=== PATIENT | female | born 1930 | race Caucasian/White ===

== ENCOUNTER 2016-10-15 08:39 | Outpatient (CLI) | payer MEDICARE, OTHER | END 2016-10-15 08:40 | LOC: NAVSJIPCSP 08:39 | PROVIDERS: ATTEND Internal Medicine | DX: E78.5 Hyperlipidemia, unspecified (principal); Z79.899 Other long term (current) drug therapy | CPT/HCPCS: 36415; 80061 ==

== ENCOUNTER 2016-10-26 17:14 | Emergency (ER) | payer MEDICARE, OTHER ==
[2016-10-26] MEDS ORDERED: Sodium Chloride 0.9% 500 ML ONE (18:26)
[2016-10-26 18:28] LABS: Prothrombin Time 12.4 SEC (12.0-14.7)
[2016-10-26 18:35] LABS: #Basophils 0.1 thou/uL (0.0-0.2); #Eosinphils 0.1 thou/uL (0.0-0.7); #Lymphocytes 1.1 thou/uL (1.20-3.40); #Monocytes 0.6 thou/uL (0.11-0.59); #Neutrophils 3.9 thou/uL (1.40-6.50); %Basophils 1.5 % (0.0-1.0); %Lymphocytes 18.5 % (21.0-51.0); %Monocytes 10.5 % (0.0-10.0); Hematocrit 40.8 % (36.0-47.0); Mean Platelet Volume 6.3 fL (7.4-10.4); Red Blood Cell (RBC) Count 4.27 mill/uL (4.20-5.40); White Blood Cell (WBC) Count 5.8 thou/uL (4.8-10.8)
[2016-10-26 18:36] LABS: ALT (SGPT) 29 U/L (0-55); AST (SGOT) 29 U/L (5-34); Alkaline Phosphatase 72 U/L (40-150); Anion Gap 16 mmol/L (10-20); BUN (Urea Nitrogen) 14 mg/dL (9.8-20.1); Bilirubin, Total 0.5 mg/dL (0.2-1.2); Calc. Creatinine Clearance 0 mL/min (70-130); Calcium 9.6 mg/dL (7.8-10.44); Carbon Dioxide 23 mmol/L (23-31); Chloride 96 mmol/L (98-107); Estimated GFR-MDRD 65; Lipase 48 U/L (8-78); Protein, Total 7.4 g/dL (5.8-8.1)
== END 2016-10-26 19:44 | disposition home or self-care (01) ==
LOC: NAV ERS 17:14
DX: K64.4 Residual hemorrhoidal skin tags (principal); E78.5 Hyperlipidemia, unspecified; K21.9 Gastro-esophageal reflux disease without esophagitis; I10 Essential (primary) hypertension; Z79.899 Other long term (current) drug therapy; Z79.82 Long term (current) use of aspirin
CPT/HCPCS: 80053; 82272; 83690; 85025; 85610; 93005; 96360; J7050

== ENCOUNTER 2016-11-29 14:26 | Outpatient (CLI) | payer MEDICARE, OTHER | END 2016-11-29 14:27 | disposition home or self-care (01) | LOC: NAVSJIPCSP 14:26 | PROVIDERS: ATTEND Internal Medicine | DX: R35.0 Frequency of micturition (principal) | CPT/HCPCS: 36415; 87086 ==

== ENCOUNTER 2016-12-28 16:40 | Inpatient (IN) | payer MEDICARE, OTHER ==
[2016-12-28] MEDS ORDERED: Sodium Chloride 0.9% 1,000 ML ONE (17:20)
[2016-12-28 17:41] LABS: #Basophils 0.1 thou/uL (0.0-0.2); #Eosinphils 0.1 thou/uL (0.0-0.7); #Lymphocytes 0.9 thou/uL (1.20-3.40); #Monocytes 0.8 thou/uL (0.11-0.59); #Neutrophils 4.7 thou/uL (1.40-6.50); %Basophils 1.1 % (0.0-1.0); %Eosinophils 1.2 % (0.0-10.0); %Lymphocytes 13.3 % (21.0-51.0); %Monocytes 11.8 % (0.0-10.0); %Neutrophils 72.6 % (42.0-75.0); Hemoglobin 11.9 g/dL (12.0-16.0); Mean Corpuscular HGB CONC 34.9 g/dL (32.0-36.0); Mean Corpuscular Volume 91.7 fl (81.0-99.0); Mean Platelet Volume 6.3 fL (7.4-10.4); Platelet Count 217 thou/uL (130-400); RBC Distribution Width 10.8 % (11.5-14.5); Red Blood Cell (RBC) Count 3.73 mill/uL (4.20-5.40); White Blood Cell (WBC) Count 6.5 thou/uL (4.8-10.8)
[2016-12-28 17:57] LABS: ALT (SGPT) 22 U/L (0-55); AST (SGOT) 24 U/L (5-34); Alkaline Phosphatase 62 U/L (40-150); Anion Gap 16 mmol/L (10-20); BUN (Urea Nitrogen) 14 mg/dL (9.8-20.1); Bilirubin, Total 0.5 mg/dL (0.2-1.2); CK (CPK) 104 U/L (29-168); Calc. Creatinine Clearance 0 mL/min (70-130); Carbon Dioxide 24 mmol/L (23-31); Chloride 87 mmol/L (98-107); Estimated GFR-MDRD 77; Globulin 3.2 g/dL (2.4-3.5); Glucose 102 mg/dL (83-110); Potassium 3.8 mmol/L (3.5-5.1); Protein, Total 7.2 g/dL (5.8-8.1); Sodium 123 mmol/L (136-145)
[2016-12-28 18:06] LABS: CKMB 3.2 ng/mL (0-6.6); Troponin I Less than 0.010 ng/mL (< 0.028)
[2016-12-28 18:19] LABS: Bilirubin Negative (Negative); Blood, Urine Negative (Negative); Glucose, Urine (Dipstick) Negative (Negative); Leukocyte Trace (Negative); Nitrite Negative (Negative); Protein, Urine (Dipstick) Negative (Neg-Trace)
[2016-12-28 18:20] LABS: Clarity Hazy (Clear)
[2016-12-28 18:22] LABS: Bacteria/HPF 1+ HPF (None Seen); RBC/HPF None Seen HPF (0-3)
[2016-12-28] MEDS ORDERED: Amoxicillin/Potassium Clav 875 MG TAB ONE (18:32)
[2016-12-28] MEDS ORDERED: Acetaminophen 325 MG TAB PO PRN (20:18)
[2016-12-28] MEDS ORDERED: Sodium Chloride 0.9% 1,000 ML IV SCH (20:30)
[2016-12-28] MEDS ORDERED: Ondansetron ODT 4 MG TAB PO PRN (21:37)
[2016-12-28] MEDS: Sodium Chloride 0.9% 1,000 ML IV SCH (22:33)
--- NOTE | 2016-12-28 23:31 | CT ---
CT HEAD WITHOUT IV CONTRAST 12/28/2016 HISTORY: Confusion and falling spells. Hyponatremia. Weakness. FINDINGS: There is increased attenuation of the periventricular white matter which is nonspecific but likely r eflective of mild chronic small vessel ischemic changes. There is no evidence of acute cortical inf arction, hemorrhage, mass effect, or midline shift. There is diffuse cerebral volume loss. The klarissa tricular system is normal in size, shape, and position for the degree of sulcal atrophy. Vascular c alcification seen in the carotid siphons and in the distal vertebral arteries. Minimal mucosal thic kening is seen in the right ethmoidal air cells. The mastoid air cells are clear. Calvarial struct ures are intact, no calvarial fracture is seen. IMPRESSION: 1. No acute intracranial abnormality is demonstrated. 2. Mild chronic small vessel ischemic change and cerebral volume loss. POS: [facility]
--- NOTE | 2016-12-29 01:58 | HP ---
DATE OF ADMISSION: 12/28/2016 CHIEF COMPLAINT: Confusion, dizziness, falling spells, new finding of hyponatremia. HISTORY OF PRESENT ILLNESS: The patient is a very pleasant 86-year-old white female living by herse lf at home, maintaining ADLs, the only diagnosis of hypertension, mild indigestion, who over the las t several months has becoming slowly weaker and more confused and slightly demented. The family has been monitoring her medication. She had been taking clonazepam as needed rarely in the past as wel l as Fiorinal for headaches, but apparently have increased these over the last several weeks that jefry hamlin has had more headaches and she has fallen on Saturday. The family has stopped the clonazepam, but today she fell again and they brought her into the emergency room. She had been taking valsartan an d hydrochlorothiazide for years for her blood pressure and has never had a previous history of hypon atremia, but today in the emergency room was found to be significantly hyponatremic with sodium of 1 23. She states that she has been eating fairly well, although daughter states she has been decreasi ng her oral intake and has been drinking a great deal of Gatorade. She has also been found to have a possible urinary tract infection 2-3 weeks ago when her symptoms really worsened and her falling s pells worsened and she therefore was treated with Cipro even though there was contaminated urine and did appear to improve until this week. She now is lying in the bed in no distress, but has very loving rd of hearing and is giving history only intermittently and daughter is giving most of the history. She has had no history of trauma to her head. She has never had a CT scan. She has not had any lo molly focal weakness in her arms or legs. PAST MEDICAL HISTORY: Remarkable for hypertension as mentioned above, gastroesophageal reflux, migr simran headaches as mentioned above. PAST SURGICAL HISTORY: Positive for cholecystectomy. She also has a history of dyslipidemia, been on simvastatin in the past. ALLERGIES: She has a history of allergies to CODEINE and to SULFA. SOCIAL HISTORY: She is a nonsmoker and nondrinker as mentioned above. She lives alone. She is a w idow, but family is very close and supportive with daughter and grandchildren. REVIEW OF SYSTEMS: HEENT: She does have recurrent headaches, appears to have worsened recently. She has also had recu rrent dizziness and has had marked decreased hearing. No tinnitus. She has had no change in her vi hugh. PULMONARY: She denied cough, sputum production, pneumonia, asthma, tuberculosis. CARDIOVASCULAR: She denies chest pain, orthopnea, paroxysmal nocturnal dyspnea or edema. GASTROINTESTINAL: She denies nausea, vomiting, diarrhea, constipation, abdominal pain. She does loving ve poor appetite. GENITOURINARY: She did have some dysuria previously with urinary tract infection, but does have rolf e mild lower abdominal pain at this time. No dysuria or hematuria. MUSCULOSKELETAL: She denies stiffness, swelling in joints or extremities. NEUROLOGIC: She denies localized numbness or weakness in joints or extremities, but does have recur rent dizziness and falling spells and subsequent headache. OBJECTIVE: VITAL SIGNS: Shows blood pressure 155/72, pulse 75, respirations 20, temperature 98, and O2 sats 95 %. HEENT: Pupils are equal, round, and react to light and accommodation. Sclerae are anicteric. Conj unctivae pale. Oral mucous membranes well hydrated. NECK: Supple. There are no nodes or masses. JVP is not elevated. Carotids 2+ and equal without b ruits. LUNGS: Clear. CARDIAC: Examination shows regular rhythm. No gallops or murmurs. ABDOMEN: Soft, nontender with no masses or organomegaly. SKIN/EXTREMITIES: Show no edema, clubbing, cyanosis. NEUROLOGICAL: Shows cranial nerves intact. Deep tendon reflexes 2+ equal, absent Babinskis. No pr onator drift, no drift of the legs. Normal [id number] and [id number]. No past pointing. LABORATORY DATA: Show sodium 123, potassium 3.8, chloride 87, bicarbonate 24, BUN 14, creatinine 0. 72, glucose 102, calcium 9.0, total bilirubin 0.5, AST 24, ALT 22, CK 104, MB 3.2, troponin 0.010. Albumin 4.0, globulin 3.2. White count 6,500, hematocrit 34, hemoglobin 11.9. Urinalysis did show 7-10 epithelial cells, 4-6 white cells, 1+ bacteria. ASSESSMENT AND PLAN: The patient is an 86-year-old white female with a history of hypertension, rec ent urinary tract infection, 2-3 week history of increased confusion, superimposed on a several susie h history of dizziness and ataxia. She has been found to have significant hyponatremia and had been taking valsartan and hydrochlorothiazide for her blood pressure for many years, but over the last s everal weeks, she has been drinking more Gatorade and not eating as much and could possibly be havin g mild dehydration syndrome, inappropriate ADH causing her hyponatremia. We therefore discontinued hydrochlorothiazide. Continued with normal saline at 125 an hour ordered in the emergency room by gutierrez LERNER doctor. She was started on 1500 mL oral fluid restriction and repeat basic metabolic profile in the a.m. She will also get a CT scan to evaluate for intracranial injury, possibly the cause of SIADH or ataxia, I doubt this will be abnormal. We will also obviously withhold any benzodiazepines , sleeping pills, only given Tylenol for pain. See if this improves her altered mental status and f inally we will treat her urinary tract infection with Cipro. Pending results of urine culture.
[2016-12-29] MEDS: Sodium Chloride 0.9% 1,000 ML IV SCH ×4 (05:01→23:19)
[2016-12-29 05:40] LABS: #Basophils 0.1 thou/uL (0.0-0.2); #Eosinphils 0.1 thou/uL (0.0-0.7); #Lymphocytes 0.8 thou/uL (1.20-3.40); #Monocytes 0.7 thou/uL (0.11-0.59); #Neutrophils 3.8 thou/uL (1.40-6.50); %Basophils 1.2 % (0.0-1.0); %Eosinophils 1.4 % (0.0-10.0); %Lymphocytes 14.5 % (21.0-51.0); %Monocytes 13.2 % (0.0-10.0); %Neutrophils 69.8 % (42.0-75.0); Hemoglobin 11.7 g/dL (12.0-16.0); Mean Corpuscular HGB CONC 34.8 g/dL (32.0-36.0); Mean Platelet Volume 6.3 fL (7.4-10.4); Platelet Count 212 thou/uL (130-400); RBC Distribution Width 10.8 % (11.5-14.5); Red Blood Cell (RBC) Count 3.66 mill/uL (4.20-5.40); White Blood Cell (WBC) Count 5.5 thou/uL (4.8-10.8)
[2016-12-29] MEDS: Ciprofloxacin 500 MG TAB PO SCH ×2 (05:52→20:21)
[2016-12-29 05:53] LABS: ALT (SGPT) 19 U/L (0-55); AST (SGOT) 21 U/L (5-34); Albumin 3.5 g/dL (3.4-4.8); Alkaline Phosphatase 54 U/L (40-150); Anion Gap 10 mmol/L (10-20); BUN (Urea Nitrogen) 12 mg/dL (9.8-20.1); Bilirubin, Total 0.6 mg/dL (0.2-1.2); Calc. Creatinine Clearance 53 mL/min (70-130); Calcium 8.6 mg/dL (7.8-10.44); Carbon Dioxide 23 mmol/L (23-31); Chloride 100 mmol/L (98-107); Estimated GFR-MDRD 80; Globulin 2.3 g/dL (2.4-3.5); Glucose 95 mg/dL (83-110); Potassium 3.7 mmol/L (3.5-5.1); Protein, Total 5.8 g/dL (5.8-8.1); Sodium 129 mmol/L (136-145)
[2016-12-29] MEDS: Acetaminophen 500 MG TAB PO PRN (05:53)
[2016-12-29] MEDS ORDERED: Cipro 250 MG TAB PO SCH (06:00)
[2016-12-29] MEDS: Docusate 100 MG CAP PO SCH ×2 (09:51→20:21)
[2016-12-29] MEDS: Valsartan 80 MG TAB PO SCH (09:51)
[2016-12-29] MEDS: Acetaminophen 325 MG TAB PO PRN (10:29)
--- NOTE | 2016-12-29 10:46 | PRG ---
DATE OF PROGRESS NOTE: 12/29/2016 SUBJECTIVE: The patient feels much better, sitting up in bed, eating breakfast, eating entire meal, but still somewhat slightly confused, but much more awake and alert, and lucid. OBJECTIVE: VITAL SIGNS: Her blood pressure is 128/58, O2 sat is 93%, respirations 16, pulse 69, afebrile. LUNGS: Clear. CARDIAC: Regular rhythm. ABDOMEN: Soft and nontender. SKIN AND EXTREMITIES: Show no edema, clubbing, or cyanosis. NEUROLOGICAL: Shows no focal findings. CT scan only showed mild brain atrophy. LABORATORY DATA: Shows white count stable at 5500, hematocrit 33, hemoglobin 11. Sodium is up to 1 29, potassium 3.7, chloride 100, bicarbonate 23, BUN 12, creatinine 0.6. Albumin 3.5, globulin 2.3. Urinalysis did show contaminated urine. ASSESSMENT: 1. Hyponatremia, improving with discontinuation of hydrochlorothiazide, fluid restriction and IV no rmal saline. 2. Altered mental status and confusion, improving with improving her hyponatremia. Continue discon tinuation of long-acting benzodiazepine with no evidence of acute cerebrovascular accident. 3. Hypertension, still well controlled only on valsartan and no hydrochlorothiazide. We will monit or. 4. Possible urinary tract infection versus contamination. PLAN: Decrease IV to saline at 75 an hour, repeat basic metabolic profile in the a.m. Continue flu id restriction. Continue to monitor mental status. PT, OT consult to evaluate for safety. Continu e Cipro 250 twice daily until urine culture returned.
[2016-12-29] MEDS: Simvastatin 40 MG TAB PO SCH (20:21)
[2016-12-30 06:01] LABS: Anion Gap 12 mmol/L (10-20); BUN (Urea Nitrogen) 12 mg/dL (9.8-20.1); Calc. Creatinine Clearance 57 mL/min (70-130); Calcium 8.9 mg/dL (7.8-10.44); Carbon Dioxide 25 mmol/L (23-31); Chloride 99 mmol/L (98-107); Estimated GFR-MDRD 88; Glucose 97 mg/dL (83-110); Potassium 4.6 mmol/L (3.5-5.1); Sodium 131 mmol/L (136-145)
[2016-12-30] MEDS: Ciprofloxacin 500 MG TAB PO SCH ×2 (06:04→20:57)
[2016-12-30] MEDS: Docusate 100 MG CAP PO SCH ×2 (08:52→20:57)
[2016-12-30] MEDS: Valsartan 80 MG TAB PO SCH (08:52)
[2016-12-30] MEDS: Acetaminophen 500 MG TAB PO PRN ×2 (08:53→20:57)
[2016-12-30] MEDS: Acetaminophen 325 MG TAB PO PRN (11:57)
--- NOTE | 2016-12-30 14:50 | PRG ---
DATE OF SERVICE: 12/30/2016 SUBJECTIVE: The patient feels better, still slightly confused, has removed her IV, but is asking ap propriate questions and realizes that she needs to remain in the hospital. She has been eating well and has been undergoing fluid restriction and has been monitoring her blood pressure off hydrochlor othiazide. She also has been taking antibiotics and urine culture is pending. Patient has been out of the bed, somewhat only with assistance has been following directions, has not started physical t herapy yet. OBJECTIVE: Shows her blood pressure is stable at 131/60, temperature 98.3, pulse 79, respirations 2 0, O2 sats 95%. Lungs are clear. Cardiac examination shows regular rhythm. Abdomen is soft and no ntender. LABORATORY DATA: Shows improvement in the sodium to 131, potassium 4.6, chloride 99, bicarbonate 25 , BUN stable at 12, creatinine 0.64. Her urine culture is still pending. ASSESSMENT: 1. Improving hyponatremia, most likely due to thiazide diuretic, almost back to normal, we will rep eat again tomorrow and continue fluid restriction. 2. Hypertension, with good control on valsartan without hydrochlorothiazide. We will monitor. 3. Possible urinary tract infection being treated with Cipro with culture pending. 4. Possible benzodiazepine, side effect improving with discontinuation of the long-acting benzodiaz epine, clonazepam for the last week. PLAN: Can start PT, OT tomorrow. Repeat basic metabolic profile in the a.m. Continue to monitor b lood pressure, check results of urine culture and possibly discontinue Cipro. Dr. Teague to be back to assume care tomorrow.
[2016-12-30] MEDS: Simvastatin 40 MG TAB PO SCH (20:57)
[2016-12-31 05:37] LABS: Anion Gap 13 mmol/L (10-20); BUN (Urea Nitrogen) 8 mg/dL (9.8-20.1); Calc. Creatinine Clearance 58 mL/min (70-130); Calcium 8.8 mg/dL (7.8-10.44); Carbon Dioxide 23 mmol/L (23-31); Chloride 95 mmol/L (98-107); Estimated GFR-MDRD 89; Glucose 101 mg/dL (83-110); Potassium 4.3 mmol/L (3.5-5.1); Sodium 127 mmol/L (136-145)
[2016-12-31] MEDS: Ciprofloxacin 500 MG TAB PO SCH (05:52)
[2016-12-31] MEDS: Docusate 100 MG CAP PO SCH ×2 (09:05→21:51)
[2016-12-31] MEDS: Valsartan 80 MG TAB PO SCH (09:05)
[2016-12-31] MEDS: Acetaminophen 325 MG TAB PO PRN (13:37)
--- NOTE | 2016-12-31 13:44 | PRG ---
DATE OF SERVICE: 12/31/2016 SUBJECTIVE: Ms. Taylor is doing okay. She still is having episodes of confusion. Her daughter is in the room. She apparently did participate with therapy. She apparently also ate half of her praveen ch. She denies any complaints. The plan is to try her on some Aricept to see if most of this is du e to age related to dementia. I advised them that the Aricept takes a while for it to get in the sy stem and work, but the main reason we are trying is to make sure she tolerates it. I also informed the daughter that she really needs to not be staying home alone from now on. The plan is to see if she qualifies for therapy and then get her into a skilled bed and see how she does. I am going to s top her Cipro since her urine culture was negative. Will continue the fluid restriction. OBJECTIVE: VITAL SIGNS: She is afebrile, heart rate is 89, respirations are 20, oxygen saturation 96%, blood p ressure 143/89. CARDIOVASCULAR: S1, S2 plus. RESPIRATORY: Normal vesicular breath sounds. ABDOMEN: Soft, nontender, bowel sounds heard in all quadrants. EXTREMITIES: Without cyanosis or clubbing. IMPRESSION: 1. 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 2. Hyponatremia, improving. 3. Hypertension. 4. Dyslipidemia. 5. History of migraine headaches. 6. Allergic rhinitis. 7. Gastroesophageal reflux disease. 8. Deconditioning. PLAN: 1. Continue physical therapy and occupational therapy. 2. Encourage p.o. intake. 3. Continue fluid restriction. 4. Add Aricept 5 mg daily at night. 5. Stop ciprofloxacin. 6. See if she qualifies for continued therapy, then we will transfer to a swing bed. 7. Recheck laboratory values in the morning. 8. Discussed with daughter in detail and all questions answered.
[2016-12-31 15:24] VITALS: BMI 21.9
[2016-12-31] MEDS ORDERED: Donepezil HCl 5 MG TAB PO SCH (21:00)
[2016-12-31] MEDS ORDERED: Non-Formulary Item 1 EACH (Docusate Sodium [Docusate Sodium] 100 MG) PO SCH (21:00)
[2016-12-31] MEDS: Simvastatin 40 MG TAB PO SCH (21:51)
[2016-12-31] MEDS: Calcium Carbonate + Vit D 1 TAB PO SCH (21:51)
[2017-01-01 06:07] LABS: #Basophils 0.1 thou/uL (0.0-0.2); #Eosinphils 0.2 thou/uL (0.0-0.7); #Lymphocytes 1.1 thou/uL (1.20-3.40); #Monocytes 0.7 thou/uL (0.11-0.59); #Neutrophils 4.7 thou/uL (1.40-6.50); %Basophils 1.1 % (0.0-1.0); %Eosinophils 2.6 % (0.0-10.0); %Monocytes 10.6 % (0.0-10.0); %Neutrophils 69.7 % (42.0-75.0); Hemoglobin 12.1 g/dL (12.0-16.0); Mean Corpuscular HGB CONC 34.3 g/dL (32.0-36.0); Mean Corpuscular Hemoglobin 31.7 pg (27.0-31.0); Mean Corpuscular Volume 92.6 fl (81.0-99.0); Mean Platelet Volume 5.9 fL (7.4-10.4); Platelet Count 233 thou/uL (130-400); RBC Distribution Width 11.2 % (11.5-14.5); Red Blood Cell (RBC) Count 3.81 mill/uL (4.20-5.40); White Blood Cell (WBC) Count 6.8 thou/uL (4.8-10.8)
[2017-01-01 06:18] LABS: Anion Gap 12 mmol/L (10-20); BUN (Urea Nitrogen) 11 mg/dL (9.8-20.1); Calc. Creatinine Clearance 54 mL/min (70-130); Calcium 9.2 mg/dL (7.8-10.44); Carbon Dioxide 23 mmol/L (23-31); Chloride 100 mmol/L (98-107); Estimated GFR-MDRD 83; Glucose 97 mg/dL (83-110); Sodium 131 mmol/L (136-145)
[2017-01-01 07:33] VITALS: BP 160/78; TEMP 98
[2017-01-01] MEDS: Calcium Carbonate + Vit D 1 TAB PO SCH (08:19)
[2017-01-01] MEDS: Valsartan 80 MG TAB PO SCH (08:20)
[2017-01-01] MEDS: Docusate 100 MG CAP PO SCH (08:20)
[2017-01-01] MEDS ORDERED: Loratadine 10 MG TAB PO SCH (09:00)
[2017-01-01] MEDS ORDERED: Non-Formulary Item 1 EACH (Esomeprazole Magnesium [Nexium] 40 MG) PO SCH (09:00)
[2017-01-01] MEDS ORDERED: Multivitamin W/ Minerals 1 TAB PO SCH (09:00)
[2017-01-01] MEDS: Acetaminophen 325 MG TAB PO PRN (10:59)
[2017-01-01] MEDS ORDERED: Potassium Chloride 20 MEQ TAB PO SCH ×2 (13:00→14:45)
--- NOTE | 2017-01-01 13:34 | PRG ---
DATE OF SERVICE: 01/01/2017 SUBJECTIVE: Ms. Taylor is doing well. She apparently walked about 250 feet today with assistance. She is feeling tired. She denies any lightheadedness or dizziness. She did have some tremors thi s morning apparently according to her daughter, eating better. OBJECTIVE: VITAL SIGNS: She is afebrile, heart rate is 85, respirations 20, oxygen saturation 94%, blood press ure 160/78. CARDIOVASCULAR: S1, S2 plus. RESPIRATORY: Normal vesicular breath sounds. ABDOMEN: Soft, nontender, bowel sounds heard in all quadrants. EXTREMITIES: Without cyanosis or clubbing. LABORATORY VALUES: White count 6.8, H\T\H is 12.1 and 35.3, sodium 131, potassium 4.0, BUN and crea tinine are 11 and 0.67. IMPRESSION: 1. Resolving hyponatremia. 2. Possible early dementia. 3. Hypertension. 4. Gastroesophageal reflux disease. 5. Allergic rhinitis. 6. Kyphosis. 7. Deconditioning. PLAN: 1. Continue physical therapy. 2. Monitor laboratory values. 3. Discussed with daughter that the patient does need someone there 01/04. 4. Continue Aricept. 5. Routine laboratory values. 6. Deep venous thrombosis and stress ulcer prophylaxis.
== END 2017-01-01 15:18 | disposition swing bed (61) | DRG 641 ==
LOC: NAV ERS 16:40 → NAV ACUTE 19:05 → OBSVTOIN 21:37
PROVIDERS: ADMIT Internal Medicine; ATTEND Internal Medicine
DX: E87.1 Hypo-osmolality and hyponatremia (principal); E86.0 Dehydration; F03.90 Unspecified dementia, unspecified severity, without behavioral disturbance, psychotic disturbance, mood disturbance, and anxiety; T50.2X5A Adverse effect of carbonic-anhydrase inhibitors, benzothiadiazides and other diuretics, initial encounter; R27.0 Ataxia, unspecified; I10 Essential (primary) hypertension; R29.6 Repeated falls; G43.909 Migraine, unspecified, not intractable, without status migrainosus; K21.9 Gastro-esophageal reflux disease without esophagitis; Z88.1 Allergy status to other antibiotic agents; M40.209 Unspecified kyphosis, site unspecified; J30.9 Allergic rhinitis, unspecified
CPT/HCPCS: 70450; 80048; 80053; 81003; 81015; 82550; 82553; 84484; 85025; 87086; 93005; 96360; G8978-GP-CJ; G8979-GP-CI; G8987-GO-CK; G8988-GO-CI; J7050

== ENCOUNTER 2017-01-01 15:21 | Inpatient (IN) | payer MEDICARE, OTHER ==
[2017-01-01] MEDS: CALCIUM CITRATE PO SCH (21:21)
[2017-01-01] MEDS: VITAMIN D3 PO SCH (21:21)
[2017-01-01] MEDS: Simvastatin 40 MG TAB PO SCH (21:21)
[2017-01-01] MEDS: Docusate 100 MG CAP PO SCH (21:21)
[2017-01-02] MEDS: Multivitamin W/ Minerals 1 TAB PO SCH (08:52)
[2017-01-02] MEDS: Valsartan 80 MG TAB PO SCH (08:52)
[2017-01-02] MEDS: Loratadine 10 MG TAB PO SCH (08:52)
[2017-01-02] MEDS: VITAMIN D3 PO SCH ×2 (08:53→21:01)
[2017-01-02] MEDS: CALCIUM CITRATE PO SCH ×2 (08:53→21:01)
--- NOTE | 2017-01-02 17:50 | HP ---
DATE OF ADMISSION: 01/01/2017 CHIEF COMPLAINT: Waxing and waning confusion and deconditioning. BRIEF HISTORY: This is a pleasant 86-year-old female who was admitted last [place] with qu estion of urinary tract infection, frequent falls and confusion. Her workup was negative for a blad armando infection. Her electrolytes showed some hyponatremia, but it has improved. She is continuing t o have waxing and waning, confusion. Her CT brain was negative and there is no evidence for any met abolic encephalopathy. I had a long discussion with her daughter and explained to this most likely is just senile degeneration of the brain, basically dementia for which she has not been able to comp ensate anymore. I have started her on Aricept. She is working with therapy. She has been transfer red here to [facility] for continued therapy and help improve with her mobilization while family is jake ing arrangements because I advised them that she should not be staying home alone. PAST MEDICAL HISTORY: 1. Hypertension. 2. Gastroesophageal reflux disease. 3. Dyslipidemia. 4. Migraine type headaches. 5. Kyphosis. PAST SURGICAL HISTORY: Cholecystectomy. ALLERGIES: CODEINE and SULFA. FAMILY HISTORY: Noncontributory to current admission. PSYCHOSOCIAL HISTORY: No tobacco or alcohol abuse. She lives alone. REVIEW OF SYSTEMS: CARDIOVASCULAR: Denies any chest pain, shortness of breath, palpitations, PND, orthopnea, pedal obed ma. RESPIRATORY: Denies any chronic cough, expectoration or pleuritic type chest pain. GASTROINTESTINAL: Denies any nausea, vomiting, diarrhea, constipation, hematemesis, melena, hematoc hezia. GENITOURINARY: Denies any frequency, urgency, dysuria or hematuria. CENTRAL NERVOUS SYSTEM: Generalized weakness and episodes of confusion. ADMISSION MEDICATIONS: 1. Valsartan 160 mg p.o. daily. 2. Simvastatin 80 mg daily. 3. Loratadine 10 mg daily. 4. Multivitamin 1 tablet daily. 5. Ecotrin 81 mg daily. 6. Calcium with vitamin D, 2 tablets b.i.d. PHYSICAL EXAMINATION: GENERAL: An 86-year-old female resting comfortably in no acute distress. She is aware of who I am, but she thinks that she was in the hospital, was discharged home and then she had to come back because of abdominal pain. Apparently this morning, she was able to get up and go to the bath room, but this afternoon she told her nurse that she cannot until she reminded and then she did it. VITAL SIGNS: She is afebrile. Heart rate is 72, respirations 18, oxygen saturation 95%, blood pres sure is 130/61. HEENT: Normocephalic, atraumatic. CARDIOVASCULAR: S1 and S2 plus. RESPIRATORY: Normal vesicular breath sounds. ABDOMEN: Soft, nontender, bowel sounds heard in all quadrants. EXTREMITIES: Without cyanosis or clubbing. CENTRAL NERVOUS SYSTEM: Grossly nonfocal except for the cognitive dysfunction. IMPRESSION: 1. Worsening senile dementia. 2. Improving deconditioning. 3. Hypertension. 4. Gastroesophageal reflux disease. 5. Dyslipidemia. 6. Degenerative joint disease. 7. Migraine type headache. PLAN: 1. Continue current medications. 2. Physical therapy and occupational therapy evaluate and treat. 3. DVT and stress ulcer prophylaxis. 4. Decubitus precautions. 5. Nutritional support. 6. Routine laboratory values. 7. No family at the bedside.
[2017-01-02] MEDS: Docusate 100 MG CAP PO SCH (21:00)
[2017-01-02] MEDS: Simvastatin 40 MG TAB PO SCH (21:00)
[2017-01-02] MEDS: Acetaminophen 500 MG TAB PO PRN (23:20)
[2017-01-03 05:32] LABS: Anion Gap 13 mmol/L (10-20); BUN (Urea Nitrogen) 14 mg/dL (9.8-20.1); Calc. Creatinine Clearance 55 mL/min (70-130); Calcium 8.9 mg/dL (7.8-10.44); Carbon Dioxide 24 mmol/L (23-31); Chloride 99 mmol/L (98-107); Estimated GFR-MDRD 86; Glucose 96 mg/dL (83-110); Potassium 4.5 mmol/L (3.5-5.1); Sodium 131 mmol/L (136-145)
[2017-01-03] MEDS: Valsartan 80 MG TAB PO SCH (08:45)
[2017-01-03] MEDS: Loratadine 10 MG TAB PO SCH (08:45)
[2017-01-03] MEDS: VITAMIN D3 PO SCH ×2 (08:45→21:25)
[2017-01-03] MEDS: CALCIUM CITRATE PO SCH ×2 (08:45→21:25)
[2017-01-03] MEDS: Multivitamin W/ Minerals 1 TAB PO SCH (08:45)
--- NOTE | 2017-01-03 13:52 | PRG ---
DATE OF SERVICE: 01/03/2017 SUBJECTIVE: Ms. Taylor is doing well. Denies any complaints, resting comfortably, tolerating her medications. OBJECTIVE: VITAL SIGNS: She is afebrile. Vital signs are stable. GENERAL: Her daughter is in the room. She did well with therapy. She does have some shoulder pain , probably from using her walker VITAL SIGNS: Blood pressure is 137/68, respiratory rate is 20, pulse is 78. CARDIOVASCULAR: S1, S2 plus. RESPIRATORY: Normal vesicular breath sounds. ABDOMEN: Soft, nontender, bowel sounds heard in all quadrants. EXTREMITIES: Without cyanosis or clubbing. Trace edema. LABORATORY VALUES: Sodium 131, potassium 4.5, BUN and creatinine is 14 and 0.65. TSH is 2.5476. IMPRESSION: 1. Improving deconditioning. 2. Stable hypertension. 3. Gastroesophageal reflux disease. 4. Dyslipidemia. 5. Migraine type headaches. 6. Kyphosis. 7. Anxiety. 8. Hyponatremia. 9. Encephalopathy/early dementia. PLAN: 1. Continue current medications. 2. Physical therapy. 3. Nutritional support. 4. DVT and stress ulcer prophylaxis. 5. Decubitus precautions. 6. Routine laboratory values. 7. Needs assistance at home 01/04. 8. Recheck CBC, CMP on Saturday.
[2017-01-03] MEDS: Mag-Al Plus 1200 MG/1200 MG/120 MG/30 ML UDCUP PO PRN (17:50)
[2017-01-03] MEDS: Simvastatin 40 MG TAB PO SCH (21:24)
[2017-01-03] MEDS: Docusate 100 MG CAP PO SCH (21:25)
[2017-01-03] MEDS: Acetaminophen 500 MG TAB PO PRN (21:25)
[2017-01-04] MEDS: Valsartan 80 MG TAB PO SCH (09:12)
[2017-01-04] MEDS: Acetaminophen 500 MG TAB PO PRN ×3 (09:12→20:52)
[2017-01-04] MEDS: Loratadine 10 MG TAB PO SCH (09:12)
[2017-01-04] MEDS: Multivitamin W/ Minerals 1 TAB PO SCH (09:12)
[2017-01-04] MEDS: VITAMIN D3 PO SCH ×2 (09:14→20:52)
[2017-01-04] MEDS: CALCIUM CITRATE PO SCH ×2 (09:14→20:52)
[2017-01-04] MEDS: Mag-Al Plus 1200 MG/1200 MG/120 MG/30 ML UDCUP PO PRN (17:47)
[2017-01-04] MEDS: Simvastatin 40 MG TAB PO SCH (20:52)
[2017-01-04] MEDS: Docusate 100 MG CAP PO SCH (20:52)
[2017-01-05] MEDS: Valsartan 80 MG TAB PO SCH (08:49)
[2017-01-05] MEDS: Loratadine 10 MG TAB PO SCH (08:49)
[2017-01-05] MEDS: Multivitamin W/ Minerals 1 TAB PO SCH (08:49)
[2017-01-05] MEDS: VITAMIN D3 PO SCH (09:01)
[2017-01-05] MEDS: CALCIUM CITRATE PO SCH (09:01)
[2017-01-05] MEDS ORDERED: Hydrocortisone/Pramoxine (Proctofoam HC) 10 GM BOX PR PRN (16:24)
--- NOTE | 2017-01-05 16:38 | PRG ---
DATE OF PROCEDURE: 01/05/2017. SUBJECTIVE: Ms. Taylor is doing well. Denies any complaints, resting comfortably. She apparently walked with her daughter without any issues. Her confusion is better according to staff, toleratin g her diet. OBJECTIVE: VITAL SIGNS: She is afebrile, heart rate is 81, respiration rate 18, oxygen saturation 93%, blood p ressure is 161/82. CARDIOVASCULAR: S1, S2 plus. RESPIRATORY: Normal vesicular breath sounds. ABDOMEN: Soft, nontender, bowel sounds heard in all quadrants. EXTREMITIES: Without cyanosis or clubbing. IMPRESSION: 1. Resolving hyponatremia. 2. Improving deconditioning. 3. Gastroesophageal reflux disease. 4. Hypertension. 5. Dyslipidemia. 6. Mild dementia. PLAN: 1. Continue Aricept. 2. Resume Nexium and calcium. 3. Continue physical therapy. 4. Nutritional support. 5. DVT and stress ulcer prophylaxes. 6. Decubitus precautions. 7. Recheck laboratory values in the morning. 8. No family at the bedside. They are aware that she needs to have someone with her at home at all times after discharge. Discussed with nursing.
[2017-01-05] MEDS: Calcium Carbonate + Vit D 1 TAB PO SCH (20:30)
[2017-01-05] MEDS: Donepezil HCl 10 MG TAB PO SCH (20:30)
[2017-01-05] MEDS: Docusate 100 MG CAP PO SCH (20:30)
[2017-01-05] MEDS: Acetaminophen 500 MG TAB PO PRN (20:30)
[2017-01-05] MEDS: Simvastatin 40 MG TAB PO SCH (20:30)
[2017-01-06 05:16] LABS: #Basophils 0.1 thou/uL (0.0-0.2); #Eosinphils 0.2 thou/uL (0.0-0.7); #Lymphocytes 1.1 thou/uL (1.20-3.40); #Monocytes 0.8 thou/uL (0.11-0.59); #Neutrophils 3.8 thou/uL (1.40-6.50); %Basophils 1.2 % (0.0-1.0); %Eosinophils 3.9 % (0.0-10.0); %Monocytes 12.8 % (0.0-10.0); %Neutrophils 63.1 % (42.0-75.0); Mean Corpuscular HGB CONC 34.3 g/dL (32.0-36.0); Mean Corpuscular Hemoglobin 32.2 pg (27.0-31.0); Mean Corpuscular Volume 93.8 fl (81.0-99.0); Mean Platelet Volume 5.7 fL (7.4-10.4); Platelet Count 248 thou/uL (130-400); RBC Distribution Width 11.6 % (11.5-14.5); Red Blood Cell (RBC) Count 3.73 mill/uL (4.20-5.40)
[2017-01-06 05:28] LABS: Anion Gap 15 mmol/L (10-20); BUN (Urea Nitrogen) 13 mg/dL (9.8-20.1); Calc. Creatinine Clearance 52 mL/min (70-130); Calcium 9.3 mg/dL (7.8-10.44); Carbon Dioxide 22 mmol/L (23-31); Chloride 99 mmol/L (98-107); Estimated GFR-MDRD 82; Glucose 98 mg/dL (83-110); Potassium 4.5 mmol/L (3.5-5.1); Sodium 131 mmol/L (136-145)
[2017-01-06] MEDS: Loratadine 10 MG TAB PO SCH (08:57)
[2017-01-06] MEDS: Valsartan 80 MG TAB PO SCH (08:57)
[2017-01-06] MEDS: Calcium Carbonate + Vit D 1 TAB PO SCH ×2 (08:57→21:36)
[2017-01-06] MEDS: Multivitamin W/ Minerals 1 TAB PO SCH (08:58)
[2017-01-06] MEDS: ESOMEPRAZOLE 40 MG PO SCH (08:58)
[2017-01-06] MEDS: Acetaminophen 500 MG TAB PO PRN ×3 (09:34→21:36)
--- NOTE | 2017-01-06 10:40 | PRG ---
DATE OF SERVICE: 01/06/2017 SUBJECTIVE: Ms. Hill is doing well. Denies any complaints except for her mild headache. She is having issues with her hemorrhoids, but ProctoFoam is helping. No family at the bedside. OBJECTIVE: VITAL SIGNS: She is afebrile, heart rate is 73, respiratory rate 18, oxygen saturation 96%, and blo od pressure is 138/63. CARDIOVASCULAR SYSTEM: S1, S2 plus. RESPIRATORY SYSTEM: Normal vesicular breath sounds. ABDOMEN: Soft, nontender, bowel sounds heard in all quadrants. EXTREMITIES: Without cyanosis or clubbing. CENTRAL NERVOUS SYSTEM: Improving deconditioning. LABORATORY DATA: White count is 6, H\T\H is 12 and 35. Sodium 131, potassium 4.5, BUN and creatini ne are 13 and 0.68. IMPRESSION: 1. Improving hyponatremia. 2. Resolving deconditioning. 3. Improving hemorrhoids. 4. Hypertension. 5. Gastroesophageal reflux disease. 6. Dyslipidemia. 7. Allergic rhinitis. 8. Mild dementia. PLAN: 1. Continue current medications. 2. Nutritional support. 3. DVT and stress ulcer prophylaxis. 4. Decubitus precautions. 5. Physical Therapy. 6. Case management consult.
[2017-01-06] MEDS: Donepezil HCl 10 MG TAB PO SCH (21:36)
[2017-01-06] MEDS: Docusate 100 MG CAP PO SCH (21:36)
[2017-01-06] MEDS: Simvastatin 40 MG TAB PO SCH (21:36)
[2017-01-07] MEDS: Acetaminophen 500 MG TAB PO PRN ×2 (08:58→21:16)
[2017-01-07] MEDS: Multivitamin W/ Minerals 1 TAB PO SCH (08:58)
[2017-01-07] MEDS: Valsartan 80 MG TAB PO SCH (08:58)
[2017-01-07] MEDS: Loratadine 10 MG TAB PO SCH (08:58)
[2017-01-07] MEDS: Calcium Carbonate + Vit D 1 TAB PO SCH ×2 (08:58→21:15)
[2017-01-07] MEDS: ESOMEPRAZOLE 40 MG PO SCH (08:59)
--- NOTE | 2017-01-07 13:52 | PRG ---
DATE OF SERVICE: 01/07/2017 SUBJECTIVE: Ms. Taylor is doing well. Denies any complaints, resting comfortably tolerating her t herapy. Her daughter is in the room and she states that she has been having some nocturia, no dysur ia, no back pain, and no fever or chills. OBJECTIVE: VITAL SIGNS: She is afebrile, heart rate 75, respirations 18, oxygen saturation 97% on room air, bl ood pressure 141/65. CARDIOVASCULAR SYSTEM: S1, S2 plus. RESPIRATORY SYSTEM: Normal vesicular breath sounds. ABDOMEN: Soft, nontender, bowel sounds heard in all quadrants. EXTREMITIES: Without cyanosis or clubbing. IMPRESSION: 1. Improving deconditioning. 2. Hyponatremia, stable. 3. Mild dementia. 4. Hypertension. 5. Gastroesophageal reflux disease. 6. Dyslipidemia. 7. Nocturia. PLAN: 1. Check urinalysis and urine culture. 2. Continue current medications. 3. Physical therapy. 4. Nutritional support. 5. We will limit fluids in the evening. 6. Discussed with daughters in detail and all questions answered.
[2017-01-07] MEDS: Donepezil HCl 10 MG TAB PO SCH (21:15)
[2017-01-07] MEDS: Simvastatin 40 MG TAB PO SCH (21:15)
[2017-01-07] MEDS: Docusate 100 MG CAP PO SCH (21:16)
[2017-01-08] MEDS: Docusate 100 MG CAP PO SCH ×2 (08:05→20:23)
[2017-01-08] MEDS: Calcium Carbonate + Vit D 1 TAB PO SCH ×2 (08:05→20:22)
[2017-01-08] MEDS: Loratadine 10 MG TAB PO SCH (08:05)
[2017-01-08] MEDS: Acetaminophen 500 MG TAB PO PRN ×3 (08:05→20:22)
[2017-01-08] MEDS: Multivitamin W/ Minerals 1 TAB PO SCH (08:05)
[2017-01-08] MEDS: Valsartan 80 MG TAB PO SCH (08:05)
[2017-01-08] MEDS: ESOMEPRAZOLE 40 MG PO SCH (08:06)
[2017-01-08 10:53] LABS: Bilirubin Negative (Negative); Blood, Urine Negative (Negative); Clarity Clear (Clear); Glucose, Urine (Dipstick) Negative (Negative); Leukocyte Negative (Negative); Nitrite Negative (Negative); Protein, Urine (Dipstick) Negative (Neg-Trace); Specific Gravity, Urine 1.015 (1.005-1.030); Urobilinogen 0.2 mg/dL (0.2-1.0)
--- NOTE | 2017-01-08 13:43 | PRG ---
DATE OF SERVICE: 01/08/2017 SUBJECTIVE: Ms. Taylor is doing well. She states that she did have a pretty bad headache, but drew t is pretty much resolved. Denies any other concerns. I advised her that her urinalysis does not s how any evidence for infection, but I am still waiting on the urine culture. Her daughter has gone for the clinical case conference. OBJECTIVE: VITAL SIGNS: She is afebrile, heart rate is 69, respirations of 15, oxygen saturation 95%, blood pr essure 126/58. CARDIOVASCULAR: S1, S2 plus. RESPIRATORY: Normal vesicular breath sounds. ABDOMEN: Soft, nontender, bowel sounds heard in all quadrants. EXTREMITIES: Without cyanosis or clubbing. IMPRESSION: 1. Stable hyponatremia. 2. Mild dementia. 3. Gastroesophageal reflux disease. 4. Hypertension. 5. Dyslipidemia. 6. Deconditioning. 7. Possible overactive bladder. PLAN: 1. Continue to monitor fluid intake and limit fluids in the evening. 2. Physical therapy. 3. Nutritional support. 4. Deep venous thrombosis and stress ulcer prophylaxis. 5. Decubitus precautions. 6. Would prefer to not add any further medications. The medications for overactive bladder do have significant anticholinergic side effects, which includes constipation and dry mouth. She would lik e to hold off if possible.
[2017-01-08] MEDS: Simvastatin 40 MG TAB PO SCH (20:22)
[2017-01-08] MEDS: Donepezil HCl 10 MG TAB PO SCH (20:23)
[2017-01-09] MEDS: Loratadine 10 MG TAB PO SCH (09:05)
[2017-01-09] MEDS: Valsartan 80 MG TAB PO SCH (09:05)
[2017-01-09] MEDS: Multivitamin W/ Minerals 1 TAB PO SCH (09:05)
[2017-01-09] MEDS: Calcium Carbonate + Vit D 1 TAB PO SCH ×2 (09:05→21:20)
[2017-01-09] MEDS: Docusate 100 MG CAP PO SCH ×2 (09:06→21:19)
[2017-01-09] MEDS: ESOMEPRAZOLE 40 MG PO SCH (09:06)
--- NOTE | 2017-01-09 11:53 | PRG ---
DATE OF SERVICE: 01/09/2017 SUBJECTIVE: Ms. Taylor is doing well. She just got back in bed after working with therapy. She i s feeling good. No headaches, no lightheadedness or dizziness. OBJECTIVE: VITAL SIGNS: She is afebrile, heart rate is 70, respiration rate 20, oxygen saturation 95%, blood p ressure 157/74. CARDIOVASCULAR: S1, S2 plus. RESPIRATORY: Normal vesicular breath sounds. ABDOMEN: Soft, nontender, bowel sounds heard in all quadrants. EXTREMITIES: Without cyanosis or clubbing. LABORATORY DATA: Magnesium is 2.3. IMPRESSION: 1. Hyponatremia, stable. 2. Improving deconditioning. 3. Hypertension. 4. Gastroesophageal reflux disease. 5. Dyslipidemia. 6. Deconditioning. 7. Mild dementia. PLAN: 1. Continue current medications. 2. Heart healthy diet. 3. DVT and stress ulcer prophylaxis. 4. Decubitus precautions. 5. Routine laboratory values. 6. Continue physical therapy.
[2017-01-09] MEDS: Simvastatin 40 MG TAB PO SCH (21:19)
[2017-01-09] MEDS: Donepezil HCl 10 MG TAB PO SCH (21:20)
[2017-01-10] MEDS: ESOMEPRAZOLE 40 MG PO SCH (08:47)
[2017-01-10] MEDS: Multivitamin W/ Minerals 1 TAB PO SCH (08:48)
[2017-01-10] MEDS: Valsartan 80 MG TAB PO SCH (08:48)
[2017-01-10] MEDS: Calcium Carbonate + Vit D 1 TAB PO SCH ×2 (08:48→20:39)
[2017-01-10] MEDS: Docusate 100 MG CAP PO SCH ×2 (08:48→20:39)
[2017-01-10] MEDS: Loratadine 10 MG TAB PO SCH (08:49)
--- NOTE | 2017-01-10 13:07 | PRG ---
DATE OF SERVICE: 01/10/2017 SUBJECTIVE: Ms. Taylor is doing well. She is up in her chair just finished her lunch. Her daught er is in the room. She is doing well with therapy. Denies any concerns or questions. OBJECTIVE: VITAL SIGNS: She is afebrile, heart rate is 85, respirations 18, oxygen saturation is 93%, blood pr essure is 169/82, recheck was 137/68. CARDIOVASCULAR: S1, S2 plus. RESPIRATORY: Normal vesicular breath sounds. ABDOMEN: Soft, nontender, bowel sounds heard in all quadrants. EXTREMITIES: Without cyanosis or clubbing. IMPRESSION: 1. Resolving hyponatremia. 2. Hypertension, fluctuating control. 3. Dyslipidemia. 4. Gastroesophageal reflux disease. 5. Kyphosis. 6. Deconditioning. 7. Mild dementia. PLAN: 1. Continue current medications. 2. Nutritional support. 3. Deep venous thrombosis and stress ulcer prophylaxis. 4. Decubitus precautions. 5. Routine laboratory values. Discussed with daughter and patient, and all questions answered. Dr. Francheska Trejo sterilization technician this week end.
[2017-01-10] MEDS: Simvastatin 40 MG TAB PO SCH (20:39)
[2017-01-10] MEDS: Donepezil HCl 10 MG TAB PO SCH (20:39)
[2017-01-10] MEDS: Acetaminophen 500 MG TAB PO PRN (22:30)
--- NOTE | 2017-01-11 09:04 | PRG ---
DATE OF SERVICE: 01/11/2017 SUBJECTIVE: Ms. Taylor states that she has no appetite this morning and she feels blah. She denie s any chest pain or shortness of breath. She denies any headache. She denies any nausea. OBJECTIVE: VITAL SIGNS: She is afebrile, heart rate is 85, respirations are 18, oxygen saturation is 93%, bloo d pressure 169/82. CARDIOVASCULAR: S1, S2 plus. RESPIRATORY: Normal vesicular breath sounds. ABDOMEN: Soft, nontender, bowel sounds heard in all quadrants. EXTREMITIES: Without cyanosis or clubbing. CENTRAL NERVOUS SYSTEM: Grossly nonfocal. IMPRESSION: 1. Hyponatremia, stable. 2. Hypertension. 3. Dyslipidemia. 4. Gastroesophageal reflux disease. 5. Mild dementia. 6. Improving deconditioning. PLAN: 1. Encouraged patient and reassured the patient, advised her that these episodes may happen, but sh ould resolve on its own. I do not see anything abnormal in my exam or on her vital signs. 2. Will recheck laboratory values. 3. Nutritional support. 4. Continue therapy. 5. May consider mild SSRI as I am wondering whether this is more an anxiety attack. We will contin ue to monitor. 6. Continue DVT and stress ulcer prophylaxis. 7. Dr. Francheska Trejo supply and distribution manager this weekend. I will discuss with patient's daughter, Loretta, on Saturday .
[2017-01-11] MEDS: ESOMEPRAZOLE 40 MG PO SCH (09:27)
[2017-01-11] MEDS: Multivitamin W/ Minerals 1 TAB PO SCH (09:28)
[2017-01-11] MEDS: Docusate 100 MG CAP PO SCH ×2 (09:28→20:09)
[2017-01-11] MEDS: Valsartan 80 MG TAB PO SCH (09:28)
[2017-01-11] MEDS: Loratadine 10 MG TAB PO SCH (09:28)
[2017-01-11] MEDS: Calcium Carbonate + Vit D 1 TAB PO SCH ×2 (09:28→20:09)
[2017-01-11] MEDS: Acetaminophen 500 MG TAB PO PRN ×2 (13:18→20:08)
[2017-01-11] MEDS: Simvastatin 40 MG TAB PO SCH (20:09)
[2017-01-11] MEDS: Donepezil HCl 10 MG TAB PO SCH (20:09)
[2017-01-12 06:57] LABS: #Basophils 0.1 thou/uL (0.0-0.2); #Eosinphils 0.2 thou/uL (0.0-0.7); #Lymphocytes 0.9 thou/uL (1.20-3.40); #Monocytes 0.7 thou/uL (0.11-0.59); #Neutrophils 3.5 thou/uL (1.40-6.50); %Basophils 1.7 % (0.0-1.0); %Lymphocytes 16.1 % (21.0-51.0); %Neutrophils 65.3 % (42.0-75.0); Hemoglobin 12.4 g/dL (12.0-16.0); Mean Corpuscular HGB CONC 34.1 g/dL (32.0-36.0); Mean Corpuscular Hemoglobin 32.1 pg (27.0-31.0); Mean Corpuscular Volume 94.2 fl (81.0-99.0); Mean Platelet Volume 6.1 fL (7.4-10.4); Platelet Count 234 thou/uL (130-400); RBC Distribution Width 11.6 % (11.5-14.5); Red Blood Cell (RBC) Count 3.86 mill/uL (4.20-5.40); White Blood Cell (WBC) Count 5.3 thou/uL (4.8-10.8)
[2017-01-12 06:58] LABS: Anion Gap 12 mmol/L (10-20); BUN (Urea Nitrogen) 12 mg/dL (9.8-20.1); Calc. Creatinine Clearance 50 mL/min (70-130); Calcium 9.1 mg/dL (7.8-10.44); Carbon Dioxide 23 mmol/L (23-31); Chloride 103 mmol/L (98-107); Estimated GFR-MDRD 77; Glucose 97 mg/dL (83-110); Potassium 4.3 mmol/L (3.5-5.1); Sodium 134 mmol/L (136-145)
[2017-01-12] MEDS: Multivitamin W/ Minerals 1 TAB PO SCH (08:37)
[2017-01-12] MEDS: Calcium Carbonate + Vit D 1 TAB PO SCH ×2 (08:37→20:59)
[2017-01-12] MEDS: Docusate 100 MG CAP PO SCH ×2 (08:37→21:00)
[2017-01-12] MEDS: Valsartan 80 MG TAB PO SCH (08:37)
[2017-01-12] MEDS: Aspirin 81 mg Enteric Coated Tablet PO SCH (08:38)
[2017-01-12] MEDS: ESOMEPRAZOLE 40 MG PO SCH (08:38)
[2017-01-12] MEDS: Loratadine 10 MG TAB PO SCH (08:38)
--- NOTE | 2017-01-12 11:32 | PRG ---
DATE OF ADMISSION: 01/01/2017 DATE OF PROGRESS NOTE: 01/12/2017 SUBJECTIVE: Ms. Taylor is a very pleasant 86-year-old white female that was awakened mild making r ounds this morning. She states she is doing fine, states she said yesterday; she thinks she is gett ing stronger. She has no complaints. She states she does not have any shortness of breath or chest pain or headaches. OBJECTIVE: VITAL SIGNS: Vital signs this morning reveal blood pressure 146/75, pulse 69-74, respirations 17-20 , O2 sat 90-94%. T-max is 97.8. LABORATORY DATA: This morning revealed a white count of 5300 with hemoglobin of 12.4, hematocrit 36 .3, and platelet count 234,000. Sodium is 134, potassium is 4.3, chloride is 103, carbon dioxide 23. Her BUN is 12, creatinine 0.72 . Urinalysis done on the 2nd was unremarkable. PHYSICAL EXAMINATION: GENERAL: This is a well-developed, well-nourished, thin white female, in no apparent distress at th is time. HEENT: Reveals normocephalic, nontraumatic cranium. Pupils are equal, round, and reactive. Extrao cular movements intact. Nose and throat are slightly dry. NECK: Supple, without masses, nodes, or bruits. CHEST: Clear to auscultation. No rales, rhonchi, or wheezes are heard. HEART: Reveals a regular rate and rhythm without murmurs, gallops or rubs. ABDOMEN: Soft, nontender, without organomegaly, normal bowel sounds are noted. No rebound or guard ing is noted. : Deferred. EXTREMITIES: Reveal no clubbing, cyanosis, or edema. NEUROLOGIC: Nonfocal DRY KILN OPERATOR HELPER. IMPRESSION: 1. Hyponatremia, improved with sodium this morning of 134. 2. Hypertension, stable. 3. Hyperlipidemia. 4. Gastroesophageal reflux. 5. Mild dementia. 6. Improving deconditioning. PLAN: 1. Continue to encourage the patient to eat well. 2. Continue physical therapy. 3. Continue to monitor labs. 4. Continue significant nutritional support. 5. Continue deep venous thrombosis and stress ulcer prophylaxis. 6. Continue decubitus precautions.
[2017-01-12] MEDS: Donepezil HCl 10 MG TAB PO SCH (21:00)
[2017-01-12] MEDS: Simvastatin 40 MG TAB PO SCH (21:00)
[2017-01-13] MEDS: Multivitamin W/ Minerals 1 TAB PO SCH (08:27)
[2017-01-13] MEDS: Docusate 100 MG CAP PO SCH ×2 (08:27→21:09)
[2017-01-13] MEDS: Calcium Carbonate + Vit D 1 TAB PO SCH ×2 (08:27→21:09)
[2017-01-13] MEDS: Loratadine 10 MG TAB PO SCH (08:27)
[2017-01-13] MEDS: Aspirin 81 mg Enteric Coated Tablet PO SCH (08:27)
[2017-01-13] MEDS: Valsartan 80 MG TAB PO SCH (08:27)
[2017-01-13] MEDS: ESOMEPRAZOLE 40 MG PO SCH (08:29)
--- NOTE | 2017-01-13 12:19 | PRG ---
DATE OF SERVICE: 01/13/2017 SUBJECTIVE: Ms. Taylor is a very pleasant 86-year-old white female who was found sitting up eating her breakfast today. She ate over half of it and states she is doing better. She is getting stron megan. She has no complaints today. OBJECTIVE: VITAL SIGNS: Today, reveal blood pressure of 141/72, pulse 69-84, respirations 17-20, O2 sat 92%-95 % on room air and T-max is 97.8. GENERAL: This is a well-developed, well-nourished, very thin white female in no apparent distress a t this time. HEENT: Reveals normocephalic and nontraumatic cranium. Pupils are equally round and reactive. Ext raocular movements are intact. Nose and throat are slightly dry. NECK: Supple, without masses, nodes or bruits. CHEST: Clear to auscultation. No rales, no rhonchi, no wheezes or cough is heard. HEART: Reveals a regular rate and rhythm without murmurs, gallops or rubs. ABDOMEN: Soft and nontender, without organomegaly, normal bowel sounds are noted. No rebound or gu arding is noted. GENITOURINARY: Deferred. EXTREMITIES: Reveal no clubbing, cyanosis or edema. NEUROLOGIC: Nonfocal. IMPRESSION: 1. Hypernatremia, improving. 2. Hypertension. 3. Hyperlipidemia. 4. Gastroesophageal reflux. 5. Mild dementia. 6. Generalized weakness. PLAN: 1. Continue to encourage the patient to eat well. 2. Continue physical therapy. 3. Continue to monitor labs. 4. Continue nutritional support. 5. Continue deep venous thrombosis and stress ulcer prophylaxis. 6. Continue decubitus precautions.
[2017-01-13] MEDS: Donepezil HCl 10 MG TAB PO SCH (21:09)
[2017-01-13] MEDS: Simvastatin 40 MG TAB PO SCH (21:09)
[2017-01-13] MEDS: Acetaminophen 500 MG TAB PO PRN (21:09)
[2017-01-14] MEDS: ESOMEPRAZOLE 40 MG PO SCH (09:10)
[2017-01-14] MEDS: Calcium Carbonate + Vit D 1 TAB PO SCH ×2 (09:10→21:30)
[2017-01-14] MEDS: Aspirin 81 mg Enteric Coated Tablet PO SCH (09:10)
[2017-01-14] MEDS: Loratadine 10 MG TAB PO SCH (09:10)
[2017-01-14] MEDS: Valsartan 80 MG TAB PO SCH (09:10)
[2017-01-14] MEDS: Multivitamin W/ Minerals 1 TAB PO SCH (09:10)
[2017-01-14] MEDS: Docusate 100 MG CAP PO SCH (09:10)
[2017-01-14] MEDS ORDERED: Docusate 100 MG CAP PO PRN (13:24)
--- NOTE | 2017-01-14 13:28 | PRG ---
DATE OF SERVICE: 01/14/2017 SUBJECTIVE: Ms. Taylor is walking out in the parking lot. She says that she has been having some burning epigastric pain. She denies any changes in her diet. She is supposed to be on her Nexium f rom home, I will check with the nurses. I also asked her to ask for the Maalox that is ordered p.r. n. I discussed with therapy and the plan is for her to be going home this Saturday with home health. OBJECTIVE: VITAL SIGNS: She is afebrile, heart rate is 84, respiration rate 18, oxygen saturation 94%, blood p ressure is elevated 171/86. CARDIOVASCULAR: S1, S2 plus. RESPIRATORY: Normal vesicular breath sounds. ABDOMEN: Soft, nontender, bowel sounds heard in all quadrants. Mild epigastric tenderness. IMPRESSION: 1. Improving hyponatremia. Her last sodium was 134. 2. Improving deconditioning. 3. Gastroesophageal reflux disease. 4. Hypertension with fluctuating control. 5. Dyslipidemia. 6. Degenerative joint disease. 7. Mild dementia. PLAN: 1. Continue physical therapy. 2. Continue Nexium and the Maalox p.r.n. 3. Routine laboratory values. 4. Family is aware that she needs someone with her at all times. 5. Discussed with nursing.
[2017-01-14] MEDS: Mag-Al Plus 1200 MG/1200 MG/120 MG/30 ML UDCUP PO SCH (16:01)
[2017-01-14] MEDS: Acetaminophen 500 MG TAB PO PRN (21:30)
[2017-01-14] MEDS: Donepezil HCl 10 MG TAB PO SCH (21:31)
[2017-01-14] MEDS: Simvastatin 40 MG TAB PO SCH (21:31)
[2017-01-15] MEDS: Mag-Al Plus 1200 MG/1200 MG/120 MG/30 ML UDCUP PO PRN (04:05)
[2017-01-15] MEDS: Mag-Al Plus 1200 MG/1200 MG/120 MG/30 ML UDCUP PO SCH ×2 (07:49→11:45)
[2017-01-15] MEDS: ESOMEPRAZOLE 40 MG PO SCH (09:00)
[2017-01-15] MEDS: Valsartan 80 MG TAB PO SCH (09:00)
[2017-01-15] MEDS: Multivitamin W/ Minerals 1 TAB PO SCH (09:00)
[2017-01-15] MEDS: Aspirin 81 mg Enteric Coated Tablet PO SCH (09:00)
[2017-01-15] MEDS: Calcium Carbonate + Vit D 1 TAB PO SCH ×2 (09:00→21:38)
[2017-01-15] MEDS: Loratadine 10 MG TAB PO SCH (09:05)
[2017-01-15] MEDS ORDERED: Calcium Carbonate 500 MG ChewTAB PO PRN (12:34)
--- NOTE | 2017-01-15 12:50 | PRG ---
DATE OF SERVICE: 01/15/2017 SUBJECTIVE: Ms. Taylor is complaining of some diarrhea. She states she has had about 3 episodes, I am not sure if this is related to we giving her Maalox before each meal, because she was complaini ng of significant heartburn. She denies any fever or chills, denies any unusual diet, advised her t hat we will stop the Maalox and see how she does. She did get her sertraline yesterday. OBJECTIVE: VITAL SIGNS: She is afebrile, heart rate is 70, respirations are 18, oxygen saturation 94%, blood p ressure is 162/76. CARDIOVASCULAR: S1, S2 plus. RESPIRATORY: Normal vesicular breath sounds. ABDOMEN: Soft, nontender, bowel sounds heard in all quadrants. EXTREMITIES: Without cyanosis or clubbing. IMPRESSION: 1. Diarrhea, possibly related to routine Maalox. 2. Improving deconditioning. 3. Hypertension, fluctuating control. 4. Anxiety, started on Zoloft. 5. Dyslipidemia. 6. Hypertension. 7. Improving hyponatremia. PLAN: 1. Continue current medications. 2. Nutritional support. 3. DVT and stress ulcer prophylaxes. 4. Decubitus precautions. 5. Recheck laboratory values. 6. Hold Maalox. 7. Simethicone p.r.n. 8. Dr. Francheska Trejo water quality control engineer from this evening till Saturday.
[2017-01-15] MEDS: Acetaminophen 500 MG TAB PO PRN ×2 (16:52→21:38)
[2017-01-15] MEDS: Simvastatin 40 MG TAB PO SCH (21:38)
[2017-01-15] MEDS: Donepezil HCl 10 MG TAB PO SCH (21:38)
[2017-01-16 06:39] LABS: #Basophils 0.1 thou/uL (0.0-0.2); #Eosinphils 0.2 thou/uL (0.0-0.7); #Monocytes 0.7 thou/uL (0.11-0.59); #Neutrophils 3.8 thou/uL (1.40-6.50); %Basophils 1.7 % (0.0-1.0); %Eosinophils 3.8 % (0.0-10.0); %Lymphocytes 17.4 % (21.0-51.0); %Monocytes 12.2 % (0.0-10.0); Hemoglobin 13.1 g/dL (12.0-16.0); Mean Corpuscular HGB CONC 34.7 g/dL (32.0-36.0); Mean Corpuscular Hemoglobin 32.2 pg (27.0-31.0); Mean Corpuscular Volume 92.6 fl (81.0-99.0); Mean Platelet Volume 6.5 fL (7.4-10.4); Platelet Count 233 thou/uL (130-400); RBC Distribution Width 11.2 % (11.5-14.5); Red Blood Cell (RBC) Count 4.06 mill/uL (4.20-5.40); White Blood Cell (WBC) Count 5.8 thou/uL (4.8-10.8)
[2017-01-16 06:48] LABS: Anion Gap 13 mmol/L (10-20); BUN (Urea Nitrogen) 11 mg/dL (9.8-20.1); Calc. Creatinine Clearance 48 mL/min (70-130); Calcium 9.2 mg/dL (7.8-10.44); Carbon Dioxide 23 mmol/L (23-31); Chloride 101 mmol/L (98-107); Estimated GFR-MDRD 74; Glucose 103 mg/dL (83-110); Potassium 4.1 mmol/L (3.5-5.1); Sodium 133 mmol/L (136-145)
[2017-01-16] MEDS: Valsartan 80 MG TAB PO SCH (08:34)
[2017-01-16] MEDS: Calcium Carbonate + Vit D 1 TAB PO SCH ×2 (08:34→20:49)
[2017-01-16] MEDS: Multivitamin W/ Minerals 1 TAB PO SCH (08:34)
[2017-01-16] MEDS: Aspirin 81 mg Enteric Coated Tablet PO SCH (08:34)
[2017-01-16] MEDS: Loratadine 10 MG TAB PO SCH (08:35)
[2017-01-16] MEDS: ESOMEPRAZOLE 40 MG PO SCH (08:35)
[2017-01-16] MEDS: Acetaminophen 500 MG TAB PO PRN (20:49)
[2017-01-16] MEDS: Simvastatin 40 MG TAB PO SCH (20:50)
[2017-01-16] MEDS: Donepezil HCl 10 MG TAB PO SCH (20:50)
[2017-01-17] MEDS: Loratadine 10 MG TAB PO SCH (08:46)
[2017-01-17] MEDS: ESOMEPRAZOLE 40 MG PO SCH (08:46)
[2017-01-17] MEDS: Multivitamin W/ Minerals 1 TAB PO SCH (08:46)
[2017-01-17] MEDS: Calcium Carbonate + Vit D 1 TAB PO SCH ×2 (08:46→21:41)
[2017-01-17] MEDS: Aspirin 81 mg Enteric Coated Tablet PO SCH (08:46)
[2017-01-17] MEDS: Valsartan 80 MG TAB PO SCH (08:46)
[2017-01-17] MEDS: Simethicone Chewable 80 MG TAB PO PRN (08:47)
--- NOTE | 2017-01-17 20:25 | PRG ---
DATE OF ADMISSION: 01/01/2017 DATE OF PROGRESS NOTE: 01/17/2017 HISTORY OF PRESENT ILLNESS: Ms. Taylor a very pleasant 86-year-old white female patient followed rosa Teague. The patient had some diarrhea which she thinks is slowed down. She is now walking with physical the rapy. Today, she states she is getting much stronger and would like to go home soon. She continues to have some confusion at times. OBJECTIVE: Reveals vital signs today, patient had a blood pressure 164/79 this morning, pulse 61-72 , respirations 18-19, O2 sat 94%-95% on room air, T-max is 98.6. LABORATORY DATA: Laboratory this morning reveals a white count of 5800 with a hemoglobin 13.1, fernando tocrit 37.7 and a platelet count of 233,000. Sodium was 133, potassium 4.1, chloride 101, carbon di oxide 23 with a BUN of 11, creatinine 0.74. Sugar this morning was 103. PHYSICAL EXAMINATION: GENERAL: This is a well-developed, thin white female in no apparent distress at this time. HEENT: Reveals normocephalic, nontraumatic cranium. Pupils are equally round and reactive. Nose a nd throat are slightly dry. NECK: Supple, without masses, nodes or bruits. CHEST: Clear to auscultation. No rales, no rhonchi, no wheezes are heard. HEART: Reveals a regular rate and rhythm without murmurs, gallops or rubs. ABDOMEN: Soft, nontender, without organomegaly. Normal bowel sounds are noted. No rebound or guar ding is noted. : Deferred. EXTREMITIES: Reveal no clubbing, cyanosis or edema. IMPRESSION: 1. Diarrhea, much improved, probably was related to the Maalox. 2. Hypertension, stable, but slightly high. 3. Hyperlipidemia. 4. Hyponatremia. 5. Generalized weakness, slowly improving and deconditioning. 6. Anxiety, presently on Zoloft. PLAN: 1. Continue present medications. 2. Continue nutritional support. 3. Continue physical therapy and occupational therapy. 4. Continue DVT and stress ulcer prophylaxis. 5. Continue decubitus precautions. 6. Continue to follow labs. 7. Home Maalox for now. 8. Simethicone p.r.n.
[2017-01-17] MEDS: Simvastatin 40 MG TAB PO SCH (21:40)
[2017-01-17] MEDS: Donepezil HCl 10 MG TAB PO SCH (21:40)
[2017-01-17] MEDS: Acetaminophen 500 MG TAB PO PRN (21:41)
[2017-01-18] MEDS: Calcium Carbonate + Vit D 1 TAB PO SCH ×2 (08:54→20:55)
[2017-01-18] MEDS: ESOMEPRAZOLE 40 MG PO SCH (08:54)
[2017-01-18] MEDS: Valsartan 80 MG TAB PO SCH (08:54)
[2017-01-18] MEDS: Loratadine 10 MG TAB PO SCH (08:54)
[2017-01-18] MEDS: Multivitamin W/ Minerals 1 TAB PO SCH (08:54)
[2017-01-18] MEDS: Aspirin 81 mg Enteric Coated Tablet PO SCH (08:54)
--- NOTE | 2017-01-18 16:37 | PRG ---
DATE OF ADMISSION: 01/01/2017 DATE OF PROGRESS NOTE: 01/18/2017 SUBJECTIVE: Ms. Taylor is a very pleasant 86-year-old, very weak white female that was admitted to the hospital by Dr. Teague for significant dehydration and diarrhea. She was also significantly wea k. She has actually been doing very well, has no complaints at this time. She states she is strong er and she does get confused at times. OBJECTIVE: VITAL SIGNS: Reveal blood pressure this morning was 162/78, pulse 70-72, respirations 18, O2 sat 93 %-95%, temperature max was 98.6. Weight this morning is not available. PHYSICAL EXAMINATION: GENERAL: This is a well-developed, well-nourished, very pleasant white female in no apparent distre ss at this time. HEENT: Reveals normocephalic, nontraumatic cranium. Pupils are equally round and reactive to light and accommodation. Extraocular movements intact. Nose and throat are slightly dry. NECK: Supple without masses, nodes or bruits. CHEST: Clear to auscultation. No rales, no rhonchi, no wheezes are heard. HEART: Reveals a regular rate and rhythm without murmurs, gallops or rubs. ABDOMEN: Soft, nontender, without organomegaly, normal bowel sounds are noted. No rebound or guard ing is noted. : Deferred. EXTREMITIES: Reveal no clubbing, cyanosis or edema. IMPRESSION: 1. Diarrhea, much improved. 2. Hypertension, stable, but slightly high. 3. Hyperlipidemia. 4. Hyponatremia, much improved. 5. Generalized weakness, slowly improving. 6. Anxiety, presently on Zoloft. PLAN: 1. Continue present medications. 2. Continue nutritional support. 3. Continue physical therapy and occupational therapy. 4. Continue DVT and stress ulcer prophylaxis. 5. Continue decubitus precautions. 6. Continue to follow the patient's labs. 7. Continue Maalox for now. 8. Simethicone p.r.n.
[2017-01-18] MEDS: Donepezil HCl 10 MG TAB PO SCH (20:55)
[2017-01-18] MEDS: Simvastatin 40 MG TAB PO SCH (20:55)
[2017-01-18] MEDS: Acetaminophen 500 MG TAB PO PRN (20:56)
[2017-01-19] MEDS: Calcium Carbonate + Vit D 1 TAB PO SCH ×2 (08:39→20:28)
[2017-01-19] MEDS: ESOMEPRAZOLE 40 MG PO SCH (08:39)
[2017-01-19] MEDS: Valsartan 80 MG TAB PO SCH (08:39)
[2017-01-19] MEDS: Multivitamin W/ Minerals 1 TAB PO SCH (08:40)
[2017-01-19] MEDS: Loratadine 10 MG TAB PO SCH (08:40)
[2017-01-19] MEDS: Aspirin 81 mg Enteric Coated Tablet PO SCH (08:40)
--- NOTE | 2017-01-19 09:58 | PRG ---
DATE OF PROGRESS NOTE: 01/19/2017 SUBJECTIVE: Patient is sitting up in the chair, visiting with nurses, feels much better, but still very weak. States she is unable to take care of herself at home. She is eating well, having less c onfusion. Apparently according to the nurses, she has not been adherent to fluid restriction and it is ordered 1500 mL daily. OBJECTIVE: VITAL SIGNS: Blood pressure 167/83, temperature 96, pulse 88, respirations 16, O2 sat 94%. LUNGS: Clear. CARDIAC: Examination shows regular rhythm. ABDOMEN: Soft and nontender. SKIN AND EXTREMITIES: Display no edema, clubbing, cyanosis. LABORATORY DATA: Recent laboratories show sodium 133, potassium 4.1, chloride 101, bicarbonate 23, BUN 11, creatinine 0.74. ASSESSMENT: Resolved hyponatremia secondary to fluid restriction, improving deconditioning, still u nable to maintain ADLs, and stable anxiety on Zoloft. PLAN: Continue fluid restriction. Continue physical therapy. Continue to monitor blood pressure. Repeat basic metabolic profile in the a.m.
[2017-01-19] MEDS: Donepezil HCl 10 MG TAB PO SCH (20:28)
[2017-01-19] MEDS: Simvastatin 40 MG TAB PO SCH (20:28)
[2017-01-19] MEDS: Simethicone Chewable 80 MG TAB PO PRN (20:29)
[2017-01-20 05:27] LABS: Anion Gap 12 mmol/L (10-20); BUN (Urea Nitrogen) 18 mg/dL (9.8-20.1); Calc. Creatinine Clearance 49 mL/min (70-130); Carbon Dioxide 26 mmol/L (23-31); Chloride 100 mmol/L (98-107); Estimated GFR-MDRD 77; Glucose 102 mg/dL (83-110); Potassium 3.8 mmol/L (3.5-5.1); Sodium 134 mmol/L (136-145)
[2017-01-20 05:39] VITALS: BMI 22.5
--- NOTE | 2017-01-20 08:53 | PRG ---
DATE OF SERVICE: 01/20/2017 SUBJECTIVE: The patient feels weak, sitting up in chair with no specific complaints, just states sh e feels shaky, has not had her morning medications. However, slept well with no shortness of breath or chest pain. Did cooperate with therapy yesterday. OBJECTIVE: VITAL SIGNS: Shows her blood pressure 180/89 this morning, pulse is 87, respirations 16, O2 sats 94 %, afebrile. LUNGS: Clear. CARDIAC: Examination showed regular rhythm. ABDOMEN: Soft and nontender. SKIN AND EXTREMITIES: Showed no edema, clubbing, cyanosis. LABORATORY DATA: Laboratory show sodium 134, potassium 3.8, chloride 100, bicarbonate 26, BUN 18, a nd creatinine 0.72. ASSESSMENT: 1. Resolved hypernatremia on fluid restriction. 2. Persistent anxiety despite on Zoloft with inability to tolerate benzodiazepine. 3. Increased blood pressure while monitoring. May need medication in the future. 4. Severe deconditioning, improving. PLAN: Continue to monitor blood pressure. Continue previous medications including Zoloft. May dis continue fluid restriction tomorrow.
[2017-01-20] MEDS: Loratadine 10 MG TAB PO SCH ×2 (09:13→09:14)
[2017-01-20] MEDS: Calcium Carbonate + Vit D 1 TAB PO SCH ×2 (09:14→20:59)
[2017-01-20] MEDS: Multivitamin W/ Minerals 1 TAB PO SCH (09:14)
[2017-01-20] MEDS: Aspirin 81 mg Enteric Coated Tablet PO SCH (09:14)
[2017-01-20] MEDS: Valsartan 80 MG TAB PO SCH (09:14)
[2017-01-20] MEDS: ESOMEPRAZOLE 40 MG PO SCH (09:16)
[2017-01-20] MEDS: Acetaminophen 500 MG TAB PO PRN ×2 (11:26→20:58)
[2017-01-20] MEDS: Donepezil HCl 10 MG TAB PO SCH (20:58)
[2017-01-20] MEDS: Simvastatin 40 MG TAB PO SCH (20:59)
[2017-01-21] MEDS: Valsartan 80 MG TAB PO SCH (09:45)
[2017-01-21] MEDS: Calcium Carbonate + Vit D 1 TAB PO SCH ×2 (09:45→21:30)
[2017-01-21] MEDS: Loratadine 10 MG TAB PO SCH ×2 (09:46→09:47)
[2017-01-21] MEDS: Aspirin 81 mg Enteric Coated Tablet PO SCH (09:46)
[2017-01-21] MEDS: Multivitamin W/ Minerals 1 TAB PO SCH (09:46)
[2017-01-21] MEDS: ESOMEPRAZOLE 40 MG PO SCH (09:47)
--- NOTE | 2017-01-21 13:48 | PRG ---
DATE OF SERVICE: 01/21/2017 SUBJECTIVE: Ms. Taylor is doing well. Denies any complaints, tolerating her therapy and her activ ity. She still has anxiety. Discussed with Occupational Therapy and she has met all of her goals a nd is discharged. I discussed with physical therapy and they stated that she pretty much is doing e verything she needs to do and is safe to go home. I did not see her daughter in the room. OBJECTIVE: VITAL SIGNS: She is afebrile, heart rate is 89, respiration is 18, oxygen saturation is 96%, blood pressure 159/78. CARDIOVASCULAR: S1, S2 plus. RESPIRATORY: Normal vesicular breath sounds. ABDOMEN: Soft, nontender, bowel sounds heard in all quadrants. EXTREMITIES: Without cyanosis or clubbing. LABORATORY VALUES: Sodium is 134, improved, BUN and creatinine 18 and 0.72. IMPRESSION: 1. Resolving hyponatremia. 2. Improving deconditioning. 3. Anxiety disorder, currently on citalopram. 4. Gastroesophageal reflux disease. 5. Hypertension. 6. Dyslipidemia. 7. Mild dementia. PLAN: 1. I will discuss with daughter. I anticipate discharging her home tomorrow. 2. Again, daughter has been informed the patient needs to have someone with her at all times. 3. Continue current medications. 4. No family at the bedside. 5. Discussed with nursing.
[2017-01-21] MEDS: Simvastatin 40 MG TAB PO SCH (21:29)
[2017-01-21] MEDS: Donepezil HCl 10 MG TAB PO SCH (21:29)
[2017-01-22] MEDS: Aspirin 81 mg Enteric Coated Tablet PO SCH (08:26)
[2017-01-22] MEDS: Loratadine 10 MG TAB PO SCH (08:26)
[2017-01-22] MEDS: Valsartan 80 MG TAB PO SCH (08:26)
[2017-01-22] MEDS: Multivitamin W/ Minerals 1 TAB PO SCH (08:26)
[2017-01-22] MEDS: Calcium Carbonate + Vit D 1 TAB PO SCH (08:27)
[2017-01-22 09:38] VITALS: TEMP 99.5
[2017-01-22 09:39] VITALS: BP 159/74
--- NOTE | 2017-01-22 13:39 | DIS ---
DATE OF ADMISSION: 01/01/2017 DATE OF DISCHARGE: 01/22/2017 PRINCIPAL DIAGNOSES: 1. Hyponatremia, which has almost resolved. 2. Deconditioning, much improved. 3. Mild dementia. 4. Hypertension. 5. Gastroesophageal reflux disease. 6. Dyslipidemia. 7. Kyphosis. 8. Migraine type headaches. COMPLICATIONS: None. ADVERSE REACTIONS: None. PROCEDURES: None. CONSULTATIONS: Physical Therapy and Occupational Therapy. HOSPITAL COURSE: The patient was admitted as a transfer from acute floor due to persistent weakness and episodes of confusion. This was felt to be most likely metabolic encephalopathy. She was noti sixto to be hyponatremic, but that resolved with IV fluids and watching her water intake. She has bee n doing well with therapy and has been discharged by both Occupational Therapy and Physical Therapy. She was noticed to have significant anxiety and was started on Citalopram. She was also started o n Aricept for episodes of confusion and forgetfulness and mild dementia. Her CT brain was unremarka ble. She was felt stable for discharge to home on 01/22/2017 with home health. Family is aware drew t she needs someone there with her 01/04. PHYSICAL EXAMINATION: VITAL SIGNS: On the day of discharge she is afebrile, heart rate is 74, respirations 20, oxygen sat uration is 93%, blood pressure 159/74. CARDIOVASCULAR: S1, S2 plus. RESPIRATORY: Normal vesicular breath sounds. ABDOMEN: Soft, nontender, bowel sounds heard in all quadrants. EXTREMITIES: Without cyanosis or clubbing. Peripheral pulses are palpable. ACCELERATOR SYSTEMS DIRECTOR: Grossly nonfocal. DISCHARGE MEDICATIONS: Tylenol 500 mg q.4 h. p.r.n., Ecotrin 81 mg daily, Colace 100 mg b.i.d. p.r. n., Aricept 10 mg daily, Claritin 10 mg daily, Nexium 40 mg daily. Zoloft 25 mg daily, which I am g oing to increase to 50, Zocor 80 mg daily, valsartan 160 mg daily. She is to follow up in my office in 3 weeks. Case management has arranged for home health. Elizabeth wiley is to call me with any questions or concerns. She is to maintain about a 1500 mL fluid restrictio n. Prescriptions will be sent to [facility] per daughter's request. Total time spent on this discharge 35 minutes.
== END 2017-01-22 17:10 | disposition home health service (06) | DRG 640 ==
LOC: NAV ACUTE 15:21
PROVIDERS: ADMIT Internal Medicine; ATTEND Internal Medicine
DX: E87.1 Hypo-osmolality and hyponatremia (principal); G93.41 Metabolic encephalopathy; F03.90 Unspecified dementia, unspecified severity, without behavioral disturbance, psychotic disturbance, mood disturbance, and anxiety; K21.9 Gastro-esophageal reflux disease without esophagitis; E78.5 Hyperlipidemia, unspecified; I10 Essential (primary) hypertension; G43.909 Migraine, unspecified, not intractable, without status migrainosus; M19.90 Unspecified osteoarthritis, unspecified site; M40.209 Unspecified kyphosis, site unspecified; F41.9 Anxiety disorder, unspecified; R35.1 Nocturia
CPT/HCPCS: 36415; 80048; 81003; 82607; 83735; 84443; 85025; 87086

== ENCOUNTER 2017-03-25 08:35 | Outpatient (CLI) | payer MEDICARE, OTHER ==
[2017-03-25 14:17] LABS: Anion Gap 17 mmol/L (10-20); BUN (Urea Nitrogen) 16 mg/dL (9.8-20.1); Calc. Creatinine Clearance 0 mL/min (70-130); Calcium 9.4 mg/dL (7.8-10.44); Carbon Dioxide 23 mmol/L (23-31); Chloride 100 mmol/L (98-107); Estimated GFR-MDRD 71; Glucose 87 mg/dL (83-110); Potassium 4.3 mmol/L (3.5-5.1); Sodium 136 mmol/L (136-145)
== END 2017-03-25 08:36 | disposition home or self-care (01) ==
LOC: NAVSJIPCSP 08:35
PROVIDERS: ATTEND Internal Medicine
DX: I11.9 Hypertensive heart disease without heart failure (principal)
CPT/HCPCS: 36415; 80048